=== PATIENT | male | born 1975 | race Two or more races ===

== ENCOUNTER 2024-11-28 13:32 | Inpatient (IN) | payer BC, OTHER ==
--- NOTE | 2024-11-28 13:55 | ED ---
General Adult HPI - General Chief complaint: Dizziness Stated complaint: Near Syncope Time Seen by Provider: 11/28/24 13:41 Source: patient Mode of arrival: ambulatory Limitations: no limitations - History of Present Illness Initial comments: Dictation was produced using [employer] dictation software. please excuse any grammatical, word or spelling errors. Chief Complaint: 49-year-old male with no significant past medical history resents to the ER for epigastric tightness and syncope History of Present Illness: Patient is a 49-year-old male he is one of our hospitalist. He works as an water filtration technician. States that over the last couple days he has been having some what he describes as reflux type symptoms. States that he has been dealing with some GERD that he relates to eating late at night and going straight to bed. He has been having some postprandial nausea. Denies any abdominal pain at the bedside states that he is getting episodes of cramping to his epigastrium. Today he had some bread this felt like his symptoms got better. Then after lunch she started to feel lightheaded after he had a couple eggs. He felt so symptomatic that he had to lay down for several minutes before his symptoms improved. Denies any history abdominal surgery. No cardiac history. No family history of cardiac disease. Symptoms did not radiate to his arms towards his jaw. No associated diaphoresis. The ROS documented in this emergency department record has been reviewed and confirmed by me. Those systems with pertinent positive or negative responses have been documented in the HPI. All other systems are other negative and/or noncontributory. - Related Data Allergies Allergy/AdvReac Type Severity Reaction Status Date / Time No Known Allergies Allergy Verified 11/28/24 13:41 Review of Systems ROS Statement: Those systems with pertinent positive or pertinent negative responses have been documented in the HPI. ROS Other: All systems not noted in ROS Statement are negative. Past Medical History Past Medical History: Hypertension History of Any Multi-Drug Resistant Organisms: None Reported Past Surgical History: No Surgical Hx Reported Past Psychological History: No Psychological Hx Reported Smoking Status: Never smoker Past Alcohol Use History: None Reported Past Drug Use History: None Reported General Exam - General Exam Comments Initial Comments: PHYSICAL EXAM: General Impression: Alert and oriented x3, not in acute distress HEENT: Normocephalic atraumatic, extra-ocular movements intact, pupils equal and reactive to light bilaterally, mucous membranes moist. Cardiovascular: Heart regular rate and rhythm Chest: Able to complete full sentences, no retractions, no tachypnea Abdomen: abdomen soft, non-tender, non-distended, no organomegaly Musculoskeletal: Pulses present and equal in all extremities, no peripheral edema Motor: no focal deficits noted Neurological: CN II-XII grossly intact, no focal motor or sensory deficits noted Skin: Intact with no visualized rashes Psych: Normal affect and mood Limitations: no limitations Course Vital Signs 11/28/24 13:34 Temperature 97.7 F Pulse Rate 71 Respiratory 18 Rate Blood Pressure 112/71 O2 Sat by Pulse 99 Oximetry - Reevaluation(s) Reevaluation #1: 11/28/24 15:13 Repeat EKG was performed at 1510 showing dynamic changes. Troponin was elevated at 0.215. Patient still having some epigastric symptoms at the bedside My EKG interpretation: Ventricular rate 91, sinus rhythm,. 141, QRS 91, QTc 397. No WV prolongation, no QTC prolongation. ST elevations in 3 and aVF with reciprocal changes in high lateral leads. EKG consistent with STEMI. Code STEMI paged at 3:14 PM EKG Findings - EKG Comments: EKG Findings:: My EKG interpretation: Ventricular rate 58, sinus rhythm,. 137, cures 93, QTc 4 7. No WV prolongation, no QTC prolongation, no ST or T-wave changes noted. Overall, this EKG is unremarkable Medical Decision Making - Medical Decision Making Was pt. sent in by a medical professional or institution (, PA, CANCELLATION CLERK, urgent care, hospital, or fdc...) When possible be specific @ -No Did you speak to anyone other than the patient for history (EMS, parent, family, police, friend...)? What history was obtained from this source @ -No Did you review nursing and triage notes (agree or disagree)? Why? @ -I reviewed and agree with nursing and triage notes Were old charts reviewed (outside hosp., previous admission, EMS record, old EKG, old radiological studies, urgent care reports/EKG's, fdc records)? Report findings @ -No old charts were reviewed Differential Diagnosis (chest pain, altered mental status, abdominal pain women, abdominal pain men, vaginal bleeding, musculoskeletal, weakness, fever, dyspnea, syncope, headache, dizziness, GI bleed, back pain, seizure, CVA, palpatations, mental health)? @ -Differential Chest Pain: Stable Angina, Unstable Angina, STEMI, NSTEMI Aortic Dissection, Pneumothorax, Musculoskeletal, Esophageal Spasm GERD, Cholecystitis, Pancreatitis, Zoster, this is not meant to be an all-inclusive list. EKG interpreted by me (3pts min.). @ -See above X-rays interpreted by me (1pt min.). @ -Chest x-ray is nonacute CT interpreted by me (1pt min.). @ -None done U/S interpreted by me (1pt. min.). @ -None done What testing was considered but not performed or refused? (CT, X-rays, U/S, labs)? Why? @ -None What meds were considered but not given or refused? Why? @ -None Was smoking cessation discussed for >3mins.? @ -No Were there social determinants of health that impacted care today? How? (Homelessness, low income, unemployed, alcoholism, drug addiction, transportation, low edu. Level, literacy, decrease access to med. care, senior living, rehab)? @ -No Was there de-escalation of care discussed even if they declined (Discuss DNR or withdrawal of care, Hospice)? DNR status @ -No What co-morbidities impacted this encounter? (DM, HTN, Smoking, COPD, CAD, Cancer, CVA, ARF, Chemo, Hep., AIDS, mental health diagnosis, sleep apnea, morbid obesity)? @ -None Was patient admitted / discharged? Hospital course, mention meds given and route, prescriptions, significant lab abnormalities, going to OR and other pertinent info. @ -49-year-old male presents to the emergency department epigastric pain associate with nausea perhaps diaphoresis. Did explain some presyncopal symptoms. Vital signs upon arrival are within acceptable limits. EKG showed no signs of ischemia or infarction that are obvious. Laboratory evaluation obtained. Troponin level came back at 0.215. EKG was repeated showing dynamic changes. Code STEMI paged chest x-ray is nonacute. Case discussed with cardiology who is aware of patient going to [facility]. Case discussed with hospitalist for admission Did you discuss the management of the patient with other professionals (professionals i.e. , PA, CANCELLATION CLERK, lab, RT, psych nurse, geriatric social worker, research management associate, teacher, aoc director combat operations officer, patient case manager)? Give summary @ -See above Was critical care preformed (if so, how long)? @ -Yes, 33 minutes for code STEMI Undiagnosed new problem with uncertain prognosis? @ -No Drug Therapy requiring intensive monitoring for toxicity (Heparin, Nitro, Insulin, Cardizem)? @ -No Were any procedures done? @ -No Diagnosis/symptom? Acute, or Chronic, or Acute on Chronic? Uncomplicated (without systemic symptoms) or Complicated (systemic symptoms)? @ -STEMI Side effects of treatment? @ -No Exacerbation, Progression, or Severe Exacerbation? @ -No Poses a threat to life or bodily function? How? (Chest pain, [place], [place], pneumonia, PE, COPD, DKA, ARF, appy, cholecystitis, CVA, Diverticulitis, Homicidal, Suicidal, threat to staff... and all critical care pts) @ -yes - Lab Data Result diagrams: 11/28/24 13:55 11/28/24 13:55 Lab Results 11/28/24 11/28/24 11/28/24 Range/Units 13:55 13:55 13:55 WBC 6.7 (3.8-10.6) k/uL RBC 5.20 (4.30-5.90) m/uL Hgb 14.6 (13.0-17.5) gm/dL Hct 42.5 (39.0-53.0) % MCV 81.6 (80.0-100.0) fL MCH 28.0 (25.0-35.0) pg MCHC 34.3 (31.0-37.0) g/dL RDW 13.1 (11.5-15.5) % Plt Count 281 (150-450) k/uL MPV 7.2 Neutrophils % 70 % Lymphocytes % 24 % Monocytes % 4 % Eosinophils % 1 % Basophils % 0 % Neutrophils # 4.7 (1.3-7.7) k/uL Lymphocytes # 1.6 (1.0-4.8) k/uL Monocytes # 0.2 (0-1.0) k/uL Eosinophils # 0.0 (0-0.7) k/uL Basophils # 0.0 (0-0.2) k/uL PT 11.2 (10.0-12.5) sec INR 1.0 (<1.2) APTT 21.9 L (22.0-30.0) sec Sodium 139 (137-145) mmol/L Potassium 4.0 (3.5-5.1) mmol/L Chloride 101 (98-107) mmol/L Carbon Dioxide 27 (22-30) mmol/L Anion Gap 11 mmol/L BUN 16 (9-20) mg/dL Creatinine 1.04 (0.66-1.25) mg/dL Est GFR (CKD-EPI)AfAm >90 (>60 ml/min/1.73 sqM) Est GFR (CKD-EPI)NonAf 85 (>60 ml/min/1.73 sqM) Glucose 133 H (74-99) mg/dL Calcium 9.5 (8.4-10.2) mg/dL Magnesium 2.0 (1.6-2.3) mg/dL Total Bilirubin 0.4 (0.2-1.3) mg/dL AST 34 (17-59) U/L ALT 44 (4-49) U/L Alkaline Phosphatase 77 (38-126) U/L Troponin I (0.000-0.034) ng/mL Total Protein 7.6 (6.3-8.2) g/dL Albumin 4.7 (3.5-5.0) g/dL Lipase 106 (23-300) U/L 11/28/24 Range/Units 13:55 WBC (3.8-10.6) k/uL RBC (4.30-5.90) m/uL Hgb (13.0-17.5) gm/dL Hct (39.0-53.0) % MCV (80.0-100.0) fL MCH (25.0-35.0) pg MCHC (31.0-37.0) g/dL RDW (11.5-15.5) % Plt Count (150-450) k/uL MPV Neutrophils % % Lymphocytes % % Monocytes % % Eosinophils % % Basophils % % Neutrophils # (1.3-7.7) k/uL Lymphocytes # (1.0-4.8) k/uL Monocytes # (0-1.0) k/uL Eosinophils # (0-0.7) k/uL Basophils # (0-0.2) k/uL PT (10.0-12.5) sec INR (<1.2) APTT (22.0-30.0) sec Sodium (137-145) mmol/L Potassium (3.5-5.1) mmol/L Chloride (98-107) mmol/L Carbon Dioxide (22-30) mmol/L Anion Gap mmol/L BUN (9-20) mg/dL Creatinine (0.66-1.25) mg/dL Est GFR (CKD-EPI)AfAm (>60 ml/min/1.73 sqM) Est GFR (CKD-EPI)NonAf (>60 ml/min/1.73 sqM) Glucose (74-99) mg/dL Calcium (8.4-10.2) mg/dL Magnesium (1.6-2.3) mg/dL Total Bilirubin (0.2-1.3) mg/dL AST (17-59) U/L ALT (4-49) U/L Alkaline Phosphatase (38-126) U/L Troponin I 0.215 H* (0.000-0.034) ng/mL Total Protein (6.3-8.2) g/dL Albumin (3.5-5.0) g/dL Lipase (23-300) U/L Disposition Clinical Impression: STEMI (ST elevation myocardial infarction) Disposition: ADMITTED IP TO THIS HOSP Condition: Critical Referrals: Quynh Thomas [Primary Care Provider] - 1-2 days Decision Time: 15:24
[2024-11-28] MEDS: SODIUM CHLORIDE 0.9% 1,000 ML IV STA (14:06)
[2024-11-28] MEDS: MAG HYDROX/AL HYDROX/SIMETH 30 ML CUP PO PRN (14:06)
[2024-11-28] MEDS: LIDOCAINE VISCOUS 2% 15 ML CUP PO ONE (14:07)
[2024-11-28 14:18] LABS: Basophils % (A) 0 %; Eosinophils % (A) 1 %; HCT 42.5 % (39.0-53.0); HGB 14.6 gm/dL (13.0-17.5); Lymphocytes # (A) 1.6 k/uL (1.0-4.8); Lymphocytes % (A) 24 %; MCHC 34.3 g/dL (31.0-37.0); MCV 81.6 fL (80.0-100.0); Mean Platelet Volume 7.2; Monocytes # (A) 0.2 k/uL (0-1.0); Monocytes % (A) 4 %; Neutrophils # (A) 4.7 k/uL (1.3-7.7); Neutrophils % (A) 70 %; Platelet Count 281 k/uL (150-450); RDW 13.1 % (11.5-15.5); WBC 6.7 k/uL (3.8-10.6)
--- NOTE | 2024-11-28 14:26 | XR ---
EXAMINATION TYPE: XR chest 2V DATE OF EXAM: 11/28/2024 2:19 PM COMPARISON: None. CLINICAL INDICATION: Male, 49 years old with history of Chest Pain, TECHNIQUE: XR chest 2V view(s) obtained. FINDINGS: The heart size is normal. The pulmonary vasculature is normal. The lungs are clear. IMPRESSION: 1. No acute pulmonary process. [facility], , 11/28/2024 2:24 PM
[2024-11-28] MEDS: HYOSCYAMINE SULFATE 0.125 MG TAB PO STA (14:27)
[2024-11-28 14:32] LABS: ALT 44 U/L (4-49); AST 34 U/L (17-59); African American GFR (CKD) >90 (>60 ml/min/1.73 sqM); Albumin 4.7 g/dL (3.5-5.0); Alkaline Phosphatase 77 U/L (38-126); Anion Gap 11 mmol/L; Blood Urea Nitrogen 16 mg/dL (9-20); Calcium 9.5 mg/dL (8.4-10.2); Carbon Dioxide 27 mmol/L (22-30); Chloride 101 mmol/L (98-107); Glucose 133 mg/dL (74-99); Lipase 106 U/L (23-300); Non-African American GFR(CKD) 85 (>60 ml/min/1.73 sqM); Sodium 139 mmol/L (137-145); Total Bilirubin 0.4 mg/dL (0.2-1.3); Total Protein 7.6 g/dL (6.3-8.2)
[2024-11-28 14:33] LABS: Partial Thromboplastin Time 21.9 sec (22.0-30.0); Prothrombin Time 11.2 sec (10.0-12.5)
[2024-11-28] MEDS ORDERED: HEPARIN SODIUM 1,000 UN/ML (10ML VL) IV PRN (15:03)
[2024-11-28] MEDS: ASPIRIN 81 MG PO STA (15:06)
[2024-11-28] MEDS: HEPARIN SODIUM 1,000 UN/ML (10ML VL) IV ONE (15:13)
[2024-11-28] MEDS ORDERED: HEPARIN SOD,PORK IN 0.45% NACL 25,000 UNIT in 0.45% NACL 1 250ML.BAG IV SCH (15:15)
[2024-11-28] MEDS ORDERED: NALOXONE 0.4 MG/ML 1 ML VIAL IV PRN (15:17)
[2024-11-28] MEDS: ATORVASTATIN 80 MG TAB PO STA ×2 (15:17→15:31)
[2024-11-28] MEDS: IV FLUID CONTINUATION 300 ML IV ONE (15:22)
[2024-11-28] MEDS: MIDAZOLAM 2 MG/2 ML VIAL IVP ONE (15:30)
[2024-11-28] MEDS ORDERED: SODIUM CHLORIDE 0.9% 1,000 ML IV SCH (15:30)
[2024-11-28] MEDS: LIDOCAINE 1% INJ 10MG/ML (20 ML MDV) SQ ONE (15:31)
[2024-11-28] MEDS: MORPHINE SULFATE 4 MG/ML SYRINGE IVP ONE (15:32)
[2024-11-28] MEDS: PHENYLEPHRINE-0.9% NACL SYG 1,000 MCG/10 ML SYRINGE IVP ONE (15:46)
--- NOTE | 2024-11-28 15:51 | P.HPIM ---
History of Present Illness 49-year-old male was having upper GI symptoms for couple days epigastric tightness nausea. Earlier today afternoon he started having diaphoresis lightheadedness looked pale was taken to ER had an EKG which showed biphasic T waves in lead III and nonspecific ST depressions in lead I, aVR and aVL and nonspecific ST elevation in lead III. Patient had dynamic EKG changes with more significant ST depressions in the follow-up EKG is and ST elevation in lead III, ST depressions in lead I to aVR and aVL. [address] elevations that are significant in lead I lead II. First set of troponin was 0.215, patient was taken to [facility]. REVIEW OF SYSTEMS: All other systems are negative except those mentioned in the HPI PHYSICAL EXAMINATION: GENERAL: The patient is alert and oriented x3, not in any acute distress. Well developed, well nourished. HEENT: Pupils are round and equally reacting to light. EOMI. No scleral icterus. No conjunctival pallor. Normocephalic, atraumatic. No pharyngeal erythema. No thyromegaly. CARDIOVASCULAR: S1 and S2 present. No murmurs, rubs, or gallops. PULMONARY: Chest is clear to auscultation, no wheezing or crackles. ABDOMEN: Soft, nontender, nondistended, normoactive bowel sounds. No palpable organomegaly. MUSCULOSKELETAL: No joint swelling or deformity. EXTREMITIES: No cyanosis, clubbing, or pedal edema. NEUROLOGICAL: Gross neurological examination did not reveal any focal deficits. SKIN: No rashes. Assessment and plan -Possible acute ST elevation HI: Cardiac catheterization, he is on IV heparin will be started on high-dose statin antiplatelet therapy patient was initially bradycardic was given Levsin in ER. Past Medical History Past Medical History: Hypertension History of Any Multi-Drug Resistant Organisms: None Reported Past Surgical History: No Surgical Hx Reported Past Psychological History: No Psychological Hx Reported Smoking Status: Never smoker Past Alcohol Use History: None Reported Past Drug Use History: None Reported Medications and Allergies Allergies Allergy/AdvReac Type Severity Reaction Status Date / Time No Known Allergies Allergy Verified 11/28/24 13:41 Physical Exam Vitals: Vital Signs Temp Pulse Resp BP Pulse Ox 11/28/24 15:17 111 H 18 132/80 99 11/28/24 14:55 110 H 11/28/24 13:34 97.7 F 71 18 112/71 99 Intake and Output 11/28/24 11/28/24 11/28/24 06:59 14:59 22:59 Other: Weight 65.771 kg Results CBC & Chem 7: 11/28/24 13:55 11/28/24 13:55 Labs: Abnormal Lab Results - Last 24 Hours (Table) 11/28/24 11/28/24 11/28/24 Range/Units 13:55 13:55 13:55 APTT 21.9 L (22.0-30.0) sec Glucose 133 H (74-99) mg/dL Troponin I 0.215 H* (0.000-0.034) ng/mL
[2024-11-28] MEDS: TIROFIBAN 12.5MG-250ML NS 250 ML IV ONE (15:52)
[2024-11-28] MEDS: NOREPINEPHRINE 4 MG in SODIUM CHLORIDE 0.9% 250 ML IV ONE (16:02)
[2024-11-28] MEDS: CLOPIDOGREL 75 MG TAB PO ONE (16:16)
[2024-11-28] MEDS: IOPAMIDOL-370 100ML BTL INJ ONE ×3 (16:17→17:19)
[2024-11-28] MEDS: niCARdipine Syringe (1,000 mcg/10 mL) INTRACORON ONE (16:20)
[2024-11-28] MEDS: HYDROmorphone 0.5 MG/0.5 ML SYRINGE IVP ONE (16:45)
[2024-11-28] MEDS: SODIUM CHLORIDE 0.9% 1,000 ML IV ONE (17:00)
[2024-11-28] MEDS: NITROGLYCERIN 1000MCG/10ML SYRINGE INTRACORON ONE (17:11)
[2024-11-28] MEDS ORDERED: ATROPINE SULFATE 0.1 MG/ML 10ML SYRINGE IV PRN (17:44)
[2024-11-28] MEDS ORDERED: MAG HYDROX/AL HYDROX/SIMETH 30 ML CUP PO PRN (17:44)
[2024-11-28] MEDS ORDERED: ZOLPIDEM 5 MG TAB PO PRN (17:44)
[2024-11-28] MEDS ORDERED: NITROGLYCERIN SL TABS 0.4 MG TAB SUBLINGUAL PRN (17:44)
[2024-11-28] MEDS ORDERED: RX INFO: IV CONTRAST WAS GIVEN 1 EACH MISC MISCELLANE PRN (17:44)
[2024-11-28 17:56] LABS: Glucose,Whole Blood 120 mg/dL (70-110)
--- NOTE | 2024-11-28 17:56 | P.CRDCN ---
History of Present Illness Consult date: 11/28/24 History of present illness: - . 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 He also had a similar episode of discomfort about 48 hours ago or more likely on Thursday and this lasted for a couple of hours he felt it was probably some dyspepsia or heartburn and he did not have any recurrence of symptoms. About a month ago also he had similar epigastric discomfort that lasted an hour or so and then it resolved. The quality of pain is somewhat atypical but the EKG in the ER initially revealed a very subtle ST segment abnormality with the J-point elevation in lead III a repeat EKG showed ST elevation in lead III and aVF and he was quickly rushed to the cardiac [facility] where I evaluated him. He was hemodynamically stable he had a very mild epigastric discomfort in EKG revealed inferior ST elevation. Physical exam revealed no significant abnormalities. He has borderline hypertension on no medications also has mild hypercholesterolemia no family history of CAD not a smoker no other known risk factors.. RELEVANT PAST MEDICAL HISTORY: Borderline hypertension and mild hyperlipidemia. MEDICATIONS: No prescription meds ALLERGIES: No known drug allergies. REVIEW OF SYSTEMS:. PHYSICIAL EXAM: Vitals are stable blood pressure was 130/90. Heart rate was about 106 bpm. HEENT unremarkable fundus not examined neck is supple no JVD no carotid bruit heart exam reveals S1-S2 heard normally no significant rub murmur or gallop lungs were clear abdomen is soft nontender lower extremities reveal palpable pulses no edema Central nervous system was normal. EKG revealed inferior ST elevation suggestive of acute inferior ST elevation FL.. IMPRESSION: 1. Acute inferior ST elevation FL based on second EKG at 3:10 PM. 2. Borderline hypertension. 3. Mild hypercholesterolemia. 4.. 5.. RECOMMENDATIONS: Advised prompt cardiac cath and PCI and this was performed expeditiously in the [facility] from right radial approach. Risks benefits options and rationale were explained to the patient. No family was available, he understood all details and wished to proceed. Past Medical History Past Medical History: Hypertension History of Any Multi-Drug Resistant Organisms: None Reported Past Surgical History: No Surgical Hx Reported Past Psychological History: No Psychological Hx Reported Smoking Status: Never smoker Past Alcohol Use History: None Reported Past Drug Use History: None Reported Medications and Allergies Allergies Allergy/AdvReac Type Severity Reaction Status Date / Time No Known Allergies Allergy Verified 11/28/24 13:41 Physical Exam Vitals: Vital Signs Temp Pulse Resp BP Pulse Ox 11/28/24 15:17 111 H 18 132/80 99 11/28/24 14:55 110 H 11/28/24 13:34 97.7 F 71 18 112/71 99 Intake and Output 11/28/24 11/28/24 11/28/24 06:59 14:59 22:59 Intake Total 387.41 Balance 387.41 Intake: IV 387.41 Other: Weight 65.771 kg Results 11/28/24 13:55 11/28/24 13:55 Cardiac Enzymes 11/28/24 11/28/24 Range/Units 13:55 13:55 AST 34 (17-59) U/L Troponin I 0.215 H* (0.000-0.034) ng/mL Coagulation 11/28/24 Range/Units 13:55 PT 11.2 (10.0-12.5) sec APTT 21.9 L (22.0-30.0) sec CBC 11/28/24 Range/Units 13:55 WBC 6.7 (3.8-10.6) k/uL RBC 5.20 (4.30-5.90) m/uL Hgb 14.6 (13.0-17.5) gm/dL Hct 42.5 (39.0-53.0) % Plt Count 281 (150-450) k/uL Comprehensive Metabolic Panel 11/28/24 Range/Units 13:55 Sodium 139 (137-145) mmol/L Potassium 4.0 (3.5-5.1) mmol/L Chloride 101 (98-107) mmol/L Carbon Dioxide 27 (22-30) mmol/L BUN 16 (9-20) mg/dL Creatinine 1.04 (0.66-1.25) mg/dL Glucose 133 H (74-99) mg/dL Calcium 9.5 (8.4-10.2) mg/dL AST 34 (17-59) U/L ALT 44 (4-49) U/L Alkaline Phosphatase 77 (38-126) U/L Total Protein 7.6 (6.3-8.2) g/dL Albumin 4.7 (3.5-5.0) g/dL Current Medications Generic Name Dose Route Start Last Admin Trade Name Freq PRN Reason Stop Dose Admin Al Hydroxide/Mg Hydroxide 30 ml 11/28/24 13:50 11/28/24 14:07 Mag Hydrox/Al Hydrox/Simeth 30 Ml Cup PO 30 ml Q4HR PRN Administration GI Upset Al Hydroxide/Mg Hydroxide 30 ml 11/28/24 17:44 Mag Hydrox/Al Hydrox/Simeth 30 Ml Cup PO Q4HR PRN Heartburn Aspirin 81 mg 11/29/24 09:00 Aspirin 81 Mg PO DAILY [facility] Atorvastatin Calcium 80 mg 11/28/24 21:00 Atorvastatin 80 Mg Tab PO HS [facility] Atropine Sulfate 0.5 mg 11/28/24 17:44 Atropine Sulfate 0.1 Mg/Ml 10ml Syringe IV ONCE PRN Symptomatic Bradycardia Clopidogrel Bisulfate 75 mg 11/29/24 09:00 Clopidogrel 75 Mg Tab PO DAILY [facility] Protocol Heparin Sodium (Porcine) 0 unit 11/28/24 15:03 Heparin Sodium 1,000 Un/Ml (10ml Vl) IV PER PROTOCOL PRN Low PTT Protocol Heparin Sodium/Sodium Chloride 250 mls @ 7.893 mls/hr 11/28/24 15:15 25,000 unit/ Sodium Chloride IV .Q24H [facility] Protocol 12 UNITS/KG/HR Sodium Chloride 1,000 mls @ 20 mls/hr 11/28/24 15:30 Saline 0.9% IV .Q24H [facility] Tirofiban/Sodium Chloride 250 mls @ 11.839 mls/hr 11/28/24 15:52 Aggrastat 12.5 Mg/250 Ml Ns IV 11/29/24 06:00 .[id number] KARLOS 0.15 MCG/KG/MIN Sodium Chloride 1,000 ml/ IV 1,000 mls @ 75 mls/hr 11/28/24 17:45 Solution IV 11/29/24 09:44 .[id number] [facility] Losartan Potassium 12.5 mg 11/28/24 21:00 Losartan 25 Mg Tab PO HS [facility] Metoprolol Tartrate 12.5 mg 11/28/24 21:00 Metoprolol Tartrate 12.5 Mg Tab PO BID [facility] Miscellaneous Information 1 each 11/28/24 17:44 Rx Info: Iv Contrast Was Given 1 Each Misc MISCELLANE 11/30/24 17:44 DAILY PRN Per Protocol Naloxone HCl 0.2 mg 11/28/24 15:17 Naloxone 0.4 Mg/Ml 1 Ml Vial IV Q2M PRN Opioid Reversal Nitroglycerin 0.4 mg 11/28/24 17:44 Nitroglycerin Sl Tabs 0.4 Mg Tab SUBLINGUAL Q5M PRN Chest Pain Zolpidem Tartrate 5 mg 11/28/24 17:44 Zolpidem 5 Mg Tab PO HS PRN Insomnia Intake and Output 11/28/24 11/28/24 11/28/24 06:59 14:59 22:59 Intake Total 387.41 Balance 387.41 Intake: IV 387.41 Other: Weight 65.771 kg Patient Weight 11/29/24 06:59 Weight 65.771 kg 11/28/24 13:55 11/28/24 13:55
--- NOTE | 2024-11-28 18:12 | P.PCN ---
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 He presented with acute inferior ST elevation PR Procedure: #1 left heart catheterization and coronary angiography. #2 PTCA and stenting of a totally occluded proximal RCA with a drug-eluting stent and PTCA of PDA and PLV branches. #3 intravascular ultrasound of RCA postprocedure. #4 PTCA and stenting of mid circumflex coronary artery with a drug-eluting stent Moderate conscious sedation time was 109 minutes. Patient was administered Versed, Dilaudid morphine. His oxygen saturation hemodynamic and EKG were monitored closely Guide Catheter: For the right coronary artery I used a standard right Rosanne guide catheter, for the circumflex I used a XB 3.0 guide catheter of 6 Fijian caliber Wire: Run-through wire was used for all lesions I also had a whisper wire for the PLV. Balloon: 3.0 balloon dilatation for the proximal RCA, 2.5 mm NC trek balloon for PDA and 2.25 NC trek balloon for PLV branch. Circumflex was dilated with a 2.5 balloon. Stent: Proximal RCA was stented with a 4.0 caliber 15 mm long Xience stent, mid circumflex was stented with a 2.5 caliber 12 mm long Xience stent. The PDA branch of RCA and PLV were both dilated. Cardiac catheterization: Under strict aseptic precautions and local anesthesia with the help of ultrasound I gained access into the right radial artery. I used a right Rosanne guide catheter to perform selective coronary angiography of RCA and the same catheter was used to check LV pressures but LV gram was not performed. A 3.5 curve left Rosanne catheter was used to perform selective coronary angiography of the left system. Following the diagnostic cath I proceeded with intervention. I performed RCA intervention expeditiously and then after the diagnostic cath of the left system I performed intervention of the circumflex. Following the procedure the sheath was taken out and a TR band applied as per protocol with saturation in the fingers of the right hand of about 94%. Patient tolerated the procedure well without complications. Reperfusion of the culprit vessel RCA was achieved in 34 minutes from the time of his ST elevation EKG. There was complete resolution of chest/epigastric pain and normalization of EKG. Cardiac catheterization : The LVEDP was about 15 to 16 mmHg with no gradient across aortic valve. Right coronary artery: Dominant vessel totally occluded 100% proximal portion with sluggish flow and evidence of layered thrombus. Left main coronary artery: Short patent disease-free vessel that bifurcates into LAD and circumflex. Left anterior descending coronary artery: Fair caliber fair distribution vessel minor irregularities no significant disease. Left posterior circumflex coronary artery: This is a nondominant vessel gives off a high first obtuse marginal and then in the midportion there is a 95% stenosis before the groove branch and distally it continues as a obtuse marginal branch. 95% mid stenosis noted not the culprit lesion Final impression: This patient has a right dominant system slightly elevated fi lling pressures no gradient. 100% RCA culprit lesion with clot, 95% nondominant mid circumflex. Left main and LAD no significant disease Recommendation: Prompt PCI of RCA was performed and following the diagnostic pictures I performed PCI of mid circumflex. Excellent result was achieved. PCI procedure details: I used a standard right Rosanne guide catheter of 6 Fijian caliber and a run-through wire. Wire was kept in the PDA branch I used a whisper wire and crossed the distal RCA that was totally occluded and went back into the PLV branch but I could see some staining of the PLV branch distally. I performed a predilatation of the proximal RCA with a 3.0 balloon which was a regular trek balloon. Vessel recoil. I deployed a 15 mm long 4.0 caliber Xience stent. There was a significant amount of thrombus. I gave Aggrastat bolus and infusion. I also gave nicardipine. The thrombus slowly resolved. Distally the thrombus settled down in the distal RCA and into the PDA. I dilated the PDA at the ostium with a 2.5 caliber NC trek balloon with excellent result. The PLB was totally occluded in the midportion across the lesion but I was unable to open of this vessel it was quite small and I used a 2.25 balloon but the caliber was probably 2.0 or less distally. Therefore I did not persist with the PTCA of PLV branch. Proximal RCA had an excellent result. I performed intravascular ultrasound of proximal RCA postprocedure. The stent was fully expanded with excellent apposition and the diameter was well-managed. It was a 3.9 maximal diameter and I used a 4.0 stent. I then turned my attention to the circumflex after the diagnostic coronary angiogram of left system. Initially I used a Rosanne catheter had difficult guide support switched over to XB 3.0 catheter with this I had better guide support. I used a run-through wire to cross the lesion. 2.5 caliber 8 mm NC trek was used to predilate the lesion I deployed a 2.5 caliber 12 mm Xience stent with excellent angiographic result. Patient received intravenous heparin of about 5000 units ACT was 279. He also received Aggrastat bolus and drip as per protocol. He received 600 mg of Plavix. Overall excellent angiographic result was achieved without complication. Patient had a complete NOREEN-3 flow in both RCA and circumflex with a distal portion of the PLV still occluded. Circumflex had an excellent angiographic result. Details were discussed with the patient's aunt also spoke to his . He was sent to the ICU in a stable condition Recommendations: Advised dual antiplatelet therapy with aspirin and Plavix for one year unless some contraindication develops down the road. Discuss with patient and family regarding details of the procedure and recommendations. Advised to statin and beta-chelsie therapy goal of LDL under 70. Echo tomorrow.
[2024-11-28] MEDS: TIROFIBAN 12.5MG-250ML NS 250 ML IV SCH (18:30)
[2024-11-28] MEDS: SODIUM CHLORIDE 0.9% 1,000 ML in EMPTY BAG 1 BAG IV SCH (18:52)
[2024-11-28] MEDS ORDERED: ONDANSETRON 4 MG/2 ML VIAL IVP PRN (19:08)
[2024-11-28] MEDS: ATORVASTATIN 80 MG TAB PO SCH (21:15)
[2024-11-28] MEDS: METOPROLOL TARTRATE 12.5 MG TAB PO SCH (21:15)
[2024-11-29] MEDS: LOSARTAN 25 MG TAB PO SCH (03:07)
[2024-11-29] MEDS: PANTOPRAZOLE 40 MG TABLET PO SCH (06:33)
[2024-11-29 07:00] LABS: Basophils % (A) 0 %; Eosinophils % (A) 1 %; HCT 37.5 % (39.0-53.0); HGB 12.4 gm/dL (13.0-17.5); Lymphocytes # (A) 1.7 k/uL (1.0-4.8); Lymphocytes % (A) 20 %; MCH 27.6 pg (25.0-35.0); MCHC 33.1 g/dL (31.0-37.0); MCV 83.4 fL (80.0-100.0); Mean Platelet Volume 6.8; Monocytes # (A) 0.5 k/uL (0-1.0); Monocytes % (A) 6 %; Neutrophils % (A) 71 %; Platelet Count 234 k/uL (150-450); RBC 4.49 m/uL (4.30-5.90); RDW 12.8 % (11.5-15.5); WBC 8.4 k/uL (3.8-10.6)
[2024-11-29 07:17] LABS: ALT 48 U/L (4-49); AST 185 U/L (17-59); African American GFR (CKD) >90 (>60 ml/min/1.73 sqM); Albumin 3.7 g/dL (3.5-5.0); Alkaline Phosphatase 62 U/L (38-126); Anion Gap 5 mmol/L; Blood Urea Nitrogen 13 mg/dL (9-20); Calcium 8.8 mg/dL (8.4-10.2); Carbon Dioxide 24 mmol/L (22-30); Chloride 108 mmol/L (98-107); Glucose 103 mg/dL (74-99); Non-African American GFR(CKD) >90 (>60 ml/min/1.73 sqM); Sodium 137 mmol/L (137-145); Total Bilirubin 0.5 mg/dL (0.2-1.3); Total Protein 6.1 g/dL (6.3-8.2)
[2024-11-29] MEDS: SODIUM CHLORIDE 0.9% 1,000 ML IV ONE (07:50)
[2024-11-29] MEDS ORDERED: SODIUM CHLORIDE 0.9% 1,000 ML IV SCH (08:00)
[2024-11-29] MEDS: CLOPIDOGREL 75 MG TAB PO SCH (08:50)
[2024-11-29] MEDS: ASPIRIN 81 MG PO SCH (08:50)
[2024-11-29 09:01] VITALS: BMI 25.4
--- NOTE | 2024-11-29 09:03 | P.PN ---
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 He presented with acute inferior ST elevation NC yesterday. Underwent stenting of a totally occluded RCA proximally and also mid circumflex. He is doing very well today blood pressure is in the mid 90s. I am recommending a fluid bolus today. Will continue current medical regimen. Losartan was not given because of blood pressure being low. Echo was performed at bedside I reviewed ejection fraction is 50 to 55% with minimal inferior basal hypokinesia. Plan is to continue current medications increase activity possible discharge tomorrow. Dual antiplatelet therapy and statin and beta-chelsie will be continued losartan if blood pressure permits. Findings reviewed echo findings discussed with patient and his .. PHYSICIAL EXAM: Vitals are stable no JVD S1-S2 heard normally no significant murmurs lungs are clear abdomen and lower extremity exam unremarkable normal [employer] exam no focal deficits. IMPRESSION: 1. S/p acute inferior NC ST elevation and stenting of RCA and circumflex doing well. 2. Hypercholesterolemia. 3. Borderline hypertension. 4.. 5.. RECOMMENDATIONS: Continue current medical therapy IV fluid bolus increase activity possible discharge tomorrow findings reviewed with patient and .. Objective - Vital Signs Vital signs: Vital Signs Temp 98.5 F 11/29/24 00:00 Pulse 73 11/29/24 07:00 Resp 12 11/29/24 07:00 BP 96/66 11/29/24 07:00 Pulse Ox 95 11/29/24 07:00 FiO2 Intake & Output 11/28/24 11/29/24 11/29/24 18:59 06:59 18:59 Intake Total 387.41 1380 0 Output Total 2250 0 Balance 387.41 -870 0 Weight 65.771 kg 71.4 kg Intake: IV 387.41 Intake, IV Titration 900 0 Amount Sodium Chloride 0.9% 1, 900 0 000 ml In Empty Bag 1 bag @ 75 mls/hr IV .[id number] [facility] Rx#:[id number] Oral 480 0 Output: Urine 2250 0 - Labs CBC & Chem 7: 11/29/24 06:35 11/29/24 06:35 Labs: Abnormal Lab Results - Last 24 Hours (Table) 11/28/24 11/28/24 11/28/24 Range/Units 13:55 13:55 13:55 Hgb (13.0-17.5) gm/dL Hct (39.0-53.0) % APTT 21.9 L (22.0-30.0) sec Chloride (98-107) mmol/L Glucose 133 H (74-99) mg/dL POC Glucose (mg/dL) (70-110) mg/dL AST (17-59) U/L Troponin I 0.215 H* (0.000-0.034) ng/mL Total Protein (6.3-8.2) g/dL 11/28/24 11/29/24 11/29/24 Range/Units 17:54 06:35 06:35 Hgb 12.4 L (13.0-17.5) gm/dL Hct 37.5 L (39.0-53.0) % APTT (22.0-30.0) sec Chloride 108 H (98-107) mmol/L Glucose 103 H (74-99) mg/dL POC Glucose (mg/dL) 120 H (70-110) mg/dL AST 185 H (17-59) U/L Troponin I (0.000-0.034) ng/mL Total Protein 6.1 L (6.3-8.2) g/dL
[2024-11-29 16:34] LABS: Chol/HDL Ratio 6.77 Ratio; LDL Cholesterol,Calculated 143.4 mg/dL (0.0-131.0)
--- NOTE | 2024-11-30 05:42 | P.PN ---
Subjective Progress Note Date: 11/29/24 This is a very pleasant 49-year-old male who was having upper GI symptoms for couple days epigastric tightness nausea. Earlier today afternoon he started having diaphoresis lightheadedness looked pale was taken to ER had an EKG which showed biphasic T waves in lead III and nonspecific ST depressions in lead I, aVR and aVL and nonspecific ST elevation in lead III. Patient had dynamic EKG changes with more significant ST depressions in the follow-up EKG is and ST elevation in lead III, ST depressions in lead I to aVR and aVL. Repeat EKG showed ST elevations that are significant in lead I lead II. First set of troponin was 0.215, code STEMI was called and patient was taken to [facility]. 11/29/2024 Patient is seen and evaluated in follow-up in the ICU continues on telemetry monitoring with cardiology following. Patient is status post cardiac catheterization with Dr. Bowling on 11/29/2024 which required stenting of the RCA and circumflex due to totally occluded RCA proximally and also the mid circumflex. Patient did have follow-up echo with an EF of 50 to 55% and is continued on statin therapy along with aspirin and Plavix. Blood pressures on the lower side and adjustments to medications including decreasing the dose of metoprolol and holding losartan for now per cardiology and will reassess. Will obtain fasting lipid panel along with hemoglobin A1c as blood sugars have been mildly elevated. Patient is afebrile with no reports of chest pain or shortness of breath. Patient is fatigued at this time. Encouraged increase activity as tolerated and patient will likely be transferred to 3 S. out of the ICU once a bed becomes available Review of systems: Constitutional: reports of fatigue, no fever, or chills Cardiovascular: No reports of chest pain or palpitations Respiratory: No reports of shortness of breath or cough GI: No reports of nausea, vomiting, or diarrhea, tolerating diet : No reports of dysuria or retention Neurovascular: No reports of weakness or numbness All medications have been reviewed All other systems are negative except those mentioned in the HPI PHYSICAL EXAMINATION: GENERAL: The patient is asleep although easily arousable, alert and oriented x3, not in any acute distress. Well developed, well nourished. HEENT: Pupils are round and equally reacting to light. EOMI. No scleral icterus. No conjunctival pallor. Normocephalic, atraumatic. No pharyngeal erythema. No thyromegaly. CARDIOVASCULAR: S1 and S2 muffled, no murmurs noted PULMONARY: Diminished breath sounds bilaterally otherwise chest is clear to auscultation, no wheezing or crackles. ABDOMEN: Soft, nontender, nondistended, normoactive bowel sounds. No palpable organomegaly. MUSCULOSKELETAL: No joint swelling or deformity. EXTREMITIES: No cyanosis, clubbing, or pedal edema. NEUROLOGICAL: Gross neurological examination did not reveal any focal deficits. SKIN: No rashes. Assessment: - acute ST elevation AL: Patient underwent cardiac catheterization requiring stenting to the RCA and circumflex -Hyperlipidemia -History of borderline hypertension previously, not on any medications, currently normotensive -Elevated random glucose, will obtain hemoglobin A1c, no history of previous diabetes -GI prophylaxis -DVT prophylaxis -Full code Plan: Patient is continued in the ICU with cardiology following closely. Patient is a downgrade to 3 S. once a bed becomes available Continue telemetry monitoring per cardiology and has been started on low-dose metoprolol, consider losartan once blood pressures have improved. Patient mildly hypotensive in the low 90s systolic and is being given some gentle hydration Repeat labs ordered for a.m. and will also obtain fasting lipid panel Continue with aspirin and Plavix along with statin therapy and will discuss further with cardiology regarding discharge planning and will need close outpatient follow-up with Dr. Bowling Encouraged increase activity as tolerated Possible discharge planning in the next 24 to 48 hours The impression and plan of care has been dictated by Nedra Matos, Nurse Practitioner as directed. Dr. Piero MD I have performed a history and examination and MDM of this patient, discussed the same with the dictator, and agree with the dictator's assessment and plan as written ,documented as a scribe. Based on total visit time, I have performed more than 50% of the visit. Objective - Vital Signs Vital signs: Vital Signs Temp 98.0 F 11/30/24 04:00 Pulse 82 11/30/24 04:00 Resp 16 11/30/24 04:00 BP 109/71 11/30/24 04:00 Pulse Ox 98 11/30/24 04:00 FiO2 Intake & Output 11/29/24 11/29/24 11/30/24 06:59 18:59 06:59 Intake Total 1380 1950 Output Total 2250 3000 Balance -870 -1050 Weight 71.4 kg 71.4 kg 70.3 kg Intake: IV 950 Sodium Chloride 0.9% 1, 700 000 ml @ 100 mls/hr IV . Q10H [facility] Rx#:[id number] Sodium Chloride 0.9% 1, 250 000 ml @ 250 mls/hr IV . Q4H ONE Rx#:[id number] Intake, IV Titration 900 0 Amount Sodium Chloride 0.9% 1, 900 0 000 ml In Empty Bag 1 bag @ 100 mls/hr IV .Q10H [facility] Rx#:[id number] Oral 480 1000 Output: Urine 2250 3000 Other: Voiding Method Toilet # Voids 2 - Labs CBC & Chem 7: 11/29/24 06:35 11/29/24 06:35 Labs: Abnormal Lab Results - Last 24 Hours (Table) 11/29/24 11/29/24 11/29/24 Range/Units 06:35 06:35 06:35 Hgb 12.4 L (13.0-17.5) gm/dL Hct 37.5 L (39.0-53.0) % Chloride 108 H (98-107) mmol/L Glucose 103 H (74-99) mg/dL Hemoglobin A1c (<=6.0) % AST 185 H (17-59) U/L Troponin I (0.000-0.034) ng/mL Total Protein 6.1 L (6.3-8.2) g/dL Triglycerides 310.00 H (0.00-149.00) mg/dL Cholesterol 241.00 H (0.00-200.00) mg/dL LDL Cholesterol, Calc 143.4 H (0.0-131.0) mg/dL VLDL Cholesterol, Calc 62.00 H (5.00-40.00) mg/dL HDL Cholesterol 35.60 L (40.00-60.00) mg/dL 11/29/24 11/29/24 11/29/24 Range/Units 06:35 08:41 19:20 Hgb (13.0-17.5) gm/dL Hct (39.0-53.0) % Chloride (98-107) mmol/L Glucose (74-99) mg/dL Hemoglobin A1c 6.1 H (<=6.0) % AST (17-59) U/L Troponin I 25.900 H* 12.300 H* (0.000-0.034) ng/mL Total Protein (6.3-8.2) g/dL Triglycerides (0.00-149.00) mg/dL Cholesterol (0.00-200.00) mg/dL LDL Cholesterol, Calc (0.0-131.0) mg/dL VLDL Cholesterol, Calc (5.00-40.00) mg/dL HDL Cholesterol (40.00-60.00) mg/dL
[2024-11-30] MEDS: METOPROLOL TARTRATE 25 MG TAB PO SCH (08:26)
[2024-11-30] MEDS: TICAGRELOR 90 MG TAB PO STA (08:26)
--- NOTE | 2024-11-30 09:03 | P.PN ---
Subjective Progress Note Date: 11/30/24 Principal diagnosis: HPI: This gentleman looks and feels well. Formal echo report is not in but ejection fraction is in the 50 to 55% range. He has no symptoms blood pressure has come up to 120 systolic he has been ambulating without symptoms. I will increase activity and discharge him later on this afternoon. I have advised him to do activities of daily living and do about a 10-minute casual paced walking 3 times a day. I will switch him from Plavix to Brilinta will give him 180 mg today and 90 mg twice daily from tomorrow along with aspirin 81 mg daily, metoprolol tartrate 25 mg twice daily which is an increase, losartan 12.5 mg at bedtime. Will discharge him this afternoon and I will see him next the at 9:30 AM. To call for questions I provided him my phone number.. PHYSICIAL EXAM: Vitals are stable no JVD S1-S2 heard normally lungs are clear abdomen and lower EXTR exams unremarkable right radial site is clean and dry with a good pulse. IMPRESSION: 1. S/p acute inferior PA with stenting of RCA and circumflex doing well. 2. Hypercholesterolemia. 3. Benign hypertension. 4.. 5.. RECOMMENDATIONS: Continue current medications as noted above office visit with me on the discharge instructions regarding activity diet medications given and spoke to his admitting doctor. Will see him in a week in the office. To call for questions. Objective - Vital Signs Vital signs: Vital Signs Temp 98.0 F 11/30/24 08:00 Pulse 89 11/30/24 08:00 Resp 16 11/30/24 08:00 BP 121/79 11/30/24 08:00 Pulse Ox 97 11/30/24 08:00 FiO2 Intake & Output 11/29/24 11/30/24 11/30/24 18:59 06:59 18:59 Intake Total 1950 Output Total 3000 Balance -1050 Weight 71.4 kg 70.3 kg Intake: IV 950 Sodium Chloride 0.9% 1, 700 000 ml @ 100 mls/hr IV . Q10H [facility] Rx#:[id number] Sodium Chloride 0.9% 1, 250 000 ml @ 250 mls/hr IV . Q4H ONE Rx#:[id number] Intake, IV Titration 0 Amount Sodium Chloride 0.9% 1, 0 000 ml In Empty Bag 1 bag @ 100 mls/hr IV .Q10H [facility] Rx#:[id number] Oral 1000 Output: Urine 3000 Other: Voiding Method Toilet # Voids 2 - Labs CBC & Chem 7: 11/29/24 06:35 11/29/24 06:35 Labs: Abnormal Lab Results - Last 24 Hours (Table) 11/29/24 11/29/24 11/29/24 Range/Units 06:35 06:35 08:41 Hemoglobin A1c 6.1 H (<=6.0) % Troponin I 25.900 H* (0.000-0.034) ng/mL Triglycerides 310.00 H (0.00-149.00) mg/dL Cholesterol 241.00 H (0.00-200.00) mg/dL LDL Cholesterol, Calc 143.4 H (0.0-131.0) mg/dL VLDL Cholesterol, Calc 62.00 H (5.00-40.00) mg/dL HDL Cholesterol 35.60 L (40.00-60.00) mg/dL 11/29/24 11/30/24 Range/Units 19:20 05:19 Hemoglobin A1c (<=6.0) % Troponin I 12.300 H* 10.900 H* (0.000-0.034) ng/mL Triglycerides (0.00-149.00) mg/dL Cholesterol (0.00-200.00) mg/dL LDL Cholesterol, Calc (0.0-131.0) mg/dL VLDL Cholesterol, Calc (5.00-40.00) mg/dL HDL Cholesterol (40.00-60.00) mg/dL
[2024-11-30 11:21] VITALS: BP 111/80; PULSE 88; RESP 15; TEMP 97.7
--- NOTE | 2024-11-30 17:30 | CA ---
Transthoracic Echo Report Name: Quynh Thomas Age: 49 Gender: M : 1975 Exam Date: 11/29/2024 07:49 Exam Location: [facility] Ht (in): 66 Wt (lb): 145 Ordering Physician: Kimberlee Bowling MD ([id number]) Attending/Referring Phys: Lubricating Specialist Alexus Gallego RDCS Procedure CPT: Indications: Acute Inf STEMI, PCI-RCA LCX eval LVFX Cardiac Hx: Technical Quality: Good Contrast 1: Total Dose (mL): Contrast 2: Total Dose (mL): MEASUREMENTS (Male / Female) Normal Values 2D ECHO LV Diastolic Diameter PLAX 4.1 cm 4.2 - 5.9 / 3.9 - 5.3 cm LV Systolic Diameter PLAX 2.5 cm IVS Diastolic Thickness 0.9 cm 0.6 - 1.0 / 0.6 - 0.9 cm LVPW Diastolic Thickness 0.7 cm 0.6 - 1.0 / 0.6 - 0.9 cm LV Relative Wall Thickness 0.4 RV Internal Dim ED PLAX 2.2 cm LA Systolic Diameter LX 3.0 cm 3.0 - 4.0 / 2.7 - 3.8 cm LV Diastolic Volume MOD BP 50.5 cm??? 67 - 155 / 56 - 104 cm??? LV Systolic Volume MOD BP 18.2 cm??? 22 - 58 / 19 - 49 cm??? LV Ejection Fraction MOD BP 64.0 % >= 55 % LV Cardiac Index MOD BP 1362.4 cm???/min???m??? LV Diastolic Volume MOD 4C 51.6 cm??? LV Systolic Volume MOD 4C 16.5 cm??? LV Ejection Fraction MOD 4C 68.0 % LV Cardiac Index MOD 4C 1480.3 cm???/min???m??? LV Diastolic Length 4C 6.5 cm LV Systolic Length 4C 5.1 cm LV Diastolic Volume MOD 2C 42.7 cm??? LV Systolic Volume MOD 2C 19.2 cm??? LV Ejection Fraction MOD 2C 55.0 % LV Cardiac Index MOD 2C 989.6 cm???/min???m??? LV Diastolic Length 2C 5.6 cm LV Systolic Length 2C 4.8 cm LA Volume 38.9 cm??? 18 - 58 / 22 - 52 cm??? LA Volume Index 22.1 cm???/m??? 16 - 28 cm???/m??? M-MODE Aortic Root Diameter MM 3.1 cm LA Systolic Diameter MM 2.7 cm LA Ao Ratio MM 0.9 AV Cusp Separation MM 1.6 cm DOPPLER AV Peak Velocity 132.4 cm/s AV Peak Gradient 7.0 mmHg AI Peak Velocity 245.0 cm/s AI Peak Gradient 24.0 mmHg AI Pressure Half Time 2156.1 ms MV Area PHT 3.0 cm??? Mitral E Point Velocity 67.7 cm/s Mitral A Point Velocity 50.2 cm/s Mitral E to A Ratio 1.3 MV Deceleration Time 250.1 ms TR Peak Velocity 212.4 cm/s TR Peak Gradient 18.0 mmHg Right Ventricular Systolic Press 22.9 mmHg FINDINGS Left Ventricle Left ventricular ejection fraction is estimated at 50-55 %. Left ventricular cavity size normal. Left ventricular wall thickness normal. Inferior basal and mid inferior wall hypokinesis Right Ventricle Normal right ventricular size. Right ventricular systolic pressure within normal limits. Right Atrium Normal right atrial size. No right atrial thrombus or mass seen. Left Atrium Normal left atrial size. No left atrial thrombus or mass present. Mitral Valve Structurally normal mitral valve. Mild mitral regurgitation. No mitral stenosis. No evidence for mitral valve prolapse. Aortic Valve Trileaflet aortic valve. No aortic valve stenosis or regurgitation. Tricuspid Valve Structurally normal tricuspid valve. Mild tricuspid regurgitation. Pulmonic Valve Structurally normal pulmonic valve. No pulmonic regurgitation. Pericardium No pericardial or pleural effusion. Aorta Normal size aortic root and proximal ascending aorta. CONCLUSIONS 1. Normal left ventricular size with mildly impaired systolic function with segmental wall motion abnormality 2. Mild mitral and tricuspid regurgitation Previewed by: Dr. Ely Shultz MD (Electronically Signed) Final Date: 30 November 2024 17:29
== END 2024-11-30 13:55 | disposition home or self-care (01) | DRG 321 ==
LOC: EC 13:32 → 2SICU 15:20
PROVIDERS: ADMIT Internal Medicine; ATTEND Internal Medicine
PROC: 027135Z Dilation of Coronary Artery, Two Arteries with Two Drug-eluting Intraluminal Devices, Percutaneous Approach (ICD-10-PCS; principal; 2024-11-28 15:18)
PROC: 02713ZZ Dilation of Coronary Artery, Two Arteries, Percutaneous Approach (ICD-10-PCS; 2024-11-28 15:18)
PROC: B240ZZ3 Ultrasonography of Single Coronary Artery, Intravascular (ICD-10-PCS; 2024-11-28 15:18)
PROC: 4A023N7 Measurement of Cardiac Sampling and Pressure, Left Heart, Percutaneous Approach (ICD-10-PCS; 2024-11-28 15:18)
PROC: B2111ZZ Fluoroscopy of Multiple Coronary Arteries using Low Osmolar Contrast (ICD-10-PCS; 2024-11-28 15:18)
DX: I21.19 ST elevation (STEMI) myocardial infarction involving other coronary artery of inferior wall (principal); R42 Dizziness and giddiness; K21.9 Gastro-esophageal reflux disease without esophagitis; I10 Essential (primary) hypertension; E78.00 Pure hypercholesterolemia, unspecified; I25.10 Atherosclerotic heart disease of native coronary artery without angina pectoris
CPT/HCPCS: 36415; 71046; 80053; 80061; 83036; 83690; 83735; 84484; 85025; 85610; 85730; 92921; 92978; 93005; 93306; 93458; 96361; 96374; 99291

== ENCOUNTER → 2025-02-27 | Outpatient (CLI) | payer OTHER ==
[2025-02-27 15:34] LABS: Basophils # (A) 0.03 X 10*3/uL (0.00-0.10); Basophils % (A) 0.6 %; Eosinophils # (A) 0.13 X 10*3/uL (0.04-0.35); Eosinophils % (A) 2.6 %; HCT 40.5 % (39.6-50.0); HGB 12.9 g/dL (13.0-17.0); Lymphocytes # (A) 1.36 X 10*3/uL (0.90-5.00); Lymphocytes % (A) 27.1 %; MCH 27.2 pg (27.0-32.0); MCHC 31.9 g/dL (32.0-37.0); MCV 85.4 FL (80.0-97.0); Monocytes # (A) 0.48 X 10*3/uL (0.20-1.00); Monocytes % (A) 9.6 %; NRBC Per 100 WBC 0 X 10*3/uL (0.00-0.01); Neutrophils % (A) 59.9 %; Platelet Count 284 X 10*3/uL (140-440); RBC 4.74 X 10*6/uL (4.40-5.60); RDW 12.5 % (11.5-14.5); WBC 5.01 X 10*3/uL (4.50-10.00)
[2025-02-27 16:11] LABS: ALT 59 U/L (10-49); AST 37 U/L (14-35); Albumin 4.6 g/dL (3.8-4.9); Albumin/Globulin Ratio 1.84 Ratio (1.60-3.17); Alkaline Phosphatase 118 U/L (41-126); Blood Urea Nitrogen 9.7 mg/dL (9.0-27.0); Calcium 9.6 mg/dL (8.7-10.3); Carbon Dioxide 26.9 mmol/L (21.6-31.8); Chloride 104 mmol/L (96-109); Chol/HDL Ratio 3.44 Ratio; Globulin 2.5 g/dL (1.6-3.3); Glucose 109 mg/dL (70-110); LDL Cholesterol,Calculated 63.6 mg/dL (0.0-131.0); Potassium 4.4 mmol/L (3.5-5.5); Sodium 141 mmol/L (135-145); Total Bilirubin 0.5 mg/dL (0.3-1.2); Total Protein 7.1 g/dL (6.2-8.2)
== END | disposition home or self-care (01) ==
LOC: LABWHC1 09:12
PROVIDERS: ATTEND Internal Medicine Interventional Cardiology
DX: Z00.00 Encounter for general adult medical examination without abnormal findings (principal); I25.10 Atherosclerotic heart disease of native coronary artery without angina pectoris; E78.5 Hyperlipidemia, unspecified
CPT/HCPCS: 36415; 80053; 80061; 82306; 83036; 85025